=== PATIENT | female | born 1960 | race Caucasian/White ===

== ENCOUNTER 2018-09-26 09:36 | Outpatient (CLI) | payer OTHER ==
[2018-09-26 09:58] LABS: BASOPHILS % (AUTO) 0.7 %; EOSINOPHILS # (AUTO) 0.1 10^3/uL (0.0-0.7); HGB - HEMOGLOBIN 14.1 g/dL (12.0-16.0); LYMPHOCYTES # (AUTO) 1.2 10^3/uL (1.5-3.5); LYMPHOCYTES % (AUTO) 26.3 %; MEAN CORPUSCULAR HEMOGLOBIN 32.7 pg (27.0-31.0); MEAN CORPUSCULAR HGB CONC 34.7 g/dL (32.0-36.0); MEAN CORPUSCULAR VOLUME 94.3 fL (81.0-99.0); MEAN PLATELET VOLUME 6.7 fL (7.9-10.8); MONOCYTES # (AUTO) 0.4 10^3/uL (0.0-1.0); MONOCYTES % (AUTO) 8.1 %; NEUTROPHILS # (AUTO) 2.8 10^3/uL (1.5-6.6); NEUTROPHILS % (AUTO) 62.9 %; PLT - PLATELET COUNT 232 10^3/uL (130-450); RED BLOOD COUNT 4.32 10^6/uL (4.20-5.40); WHITE BLOOD COUNT 4.5 x10^3/uL (4.8-10.8)
[2018-09-26 10:15] LABS: ALBUMIN 4.3 g/dL (3.2-5.5); ALBUMIN/GLOBULIN RATIO 1.4 (1.0-2.2); ALKALINE PHOSPHATASE 54 IU/L (42-121); ALT ALANINE AMINOTRANSFERASE 20 IU/L (10-60); AST ASPARTATE AMINOTRANSFERASE 19 IU/L (10-42); BILIRUBIN,TOTAL 0.7 mg/dL (0.2-1.0); BUN - BLOOD UREA NITROGEN 13 mg/dL (6-20); CALCIUM 8.9 mg/dL (8.5-10.3); CARBON DIOXIDE - CO2 24 mmol/L (21-32); CHLORIDE 106 mmol/L (101-111); CHOL/HDL RATIO 2.7 (<4.4); CHOLESTEROL 147 mg/dL; CREATININE 0.7 mg/dL (0.4-1.0); GFR - MDRD 86 (>89); GLUCOSE 107 mg/dL (70-100); HDL CHOLESTEROL 55 mg/dL; LDL CHOLESTEROL,CALCULATED 78 mg/dL; LDL/HDL RATIO 1.4 (<4.4); SODIUM 138 mmol/L (135-145); TOTAL PROTEIN 7.3 g/dL (6.7-8.2); VLDL CHOLESTEROL 14 mg/dL
[2018-09-27 13:54] LABS: HEPATITIS C ANTIBODY NON-REACTIVE (NON-REACTIVE)
== END 2018-09-26 09:37 | disposition home or self-care (01) ==
LOC: LAB 09:36
PROVIDERS: ATTEND Physician Assistant Medical
DX: Z00.00 Encounter for general adult medical examination without abnormal findings (principal); Z11.59 Encounter for screening for other viral diseases
CPT/HCPCS: 36415; 80053; 80061; 83721; 84443; 85025; 86803

== ENCOUNTER 2018-10-08 13:48 | Outpatient (CLI) | payer OTHER ==
[2018-10-08] MEDS ORDERED: IOVERSOL 320 50 ML VIAL ONE (14:09)
[2018-10-08] MEDS ORDERED: IOVERSOL 320 100 ML VIAL IVP ONE (14:09)
[2018-10-08] MEDS: IOVERSOL 320 50 ML VIAL PO ONE (14:13)
[2018-10-08] MEDS: IOVERSOL 320 100 ML VIAL IVP ONE (15:36)
--- NOTE | 2018-10-09 15:21 | CT Report ---
Reason: ABDOMINAL PAIN,RUQ,EMESIS Procedure Date: 10/08/2018 Accession Number: [id number] / [id number] Procedure: CT - Abdomen/Pelvis W/ CPT Code: FULL RESULT: EXAM: CT ABDOMEN AND PELVIS EXAM DATE: 10/08/2018 03:43 PM. CLINICAL HISTORY: ABDOMINAL PAIN,RUQ,EMESIS. COMPARISONS: ABD/PEL 06/08/2007 3:27 PM. TECHNIQUE: Routine helical CT imaging was performed through the abdomen and pelvis. IV contrast: OPTIRAY 320 100mL. Enteric contrast: Yes. Reconstructions: Coronal and sagittal. In accordance with CT protocol optimization, one or more of the following dose reduction techniques were utilized for this exam: automated exposure control, adjustment of mA and/or KV based on patient size, or use of iterative reconstructive technique. FINDINGS: Lung Bases: Dependent subsegmental atelectasis in the right lung base. Scattered centrilobular emphysema. Liver: Normal. No masses. Gallbladder/Bile Ducts: The gallbladder is surgically absent. Trace pneumobilia in the left hepatic lobe, which may represent postoperative change or possibly sphincter of Oddi dysfunction. There is a 6 mm density in the region of the common bile duct, which represent an intraluminal stone or adjacent extraluminal calcification. The cystic duct remnant is dilated. Spleen: Normal. Pancreas: Normal. Adrenal Glands: Normal. Kidneys: Normal. No masses or hydronephrosis. Peritoneal Cavity/Bowel: Enteric contrast is seen to the level of the cecum. Nonobstructive bowel gas pattern. No free air or free fluid. The appendix is well visualized and normal. Pelvic Organs: Normal. The bladder and visualized pelvic organs are within normal limits. Vasculature: No aneurysms or other significant abnormality. Bones: No significant abnormality. Other: None. IMPRESSION: Status post cholecystectomy. The cystic duct remnant is dilated. There is a 6 mm density in the region of the common bile duct, which could represent choledocholithiasis, although there is no associated bile duct dilation. Other considerations include volume averaging from an adjacent extraluminal calcification. Consider further evaluation with MRCP or ERCP as clinically indicated. Nonspecific pneumobilia in the left hepatic lobe, which may represent postoperative change. RADIA
--- NOTE | 2018-10-10 08:25 | Mammography Report ---
Reason: SCREENING MAMMO Procedure Date: 10/08/2018 Accession Number: [id number] / [id number] Procedure: [facility] - Screening Mammo Dig Bilat CPT Code: FULL RESULT: EXAM: Screening Mammo Dig Bilat DATE: 10/08/2018 2:53 PM CLINICAL HISTORY: Screening encounter. Family history of breast cancer in the mother at age 58, an aunt at age 68, and the grandmother at age 60. TECHNIQUE: Bilateral CC and MLO views were obtained. COMPARISON: 09/27/2016 through 01/31/2011. FINDINGS: The breasts demonstrate scattered fibroglandular densities bilaterally. A right upper breast intramammary lymph nodes is stable, typically benign. No suspicious masses, clustered microcalcifications, or regions of architectural distortion are identified. IMPRESSION: Benign findings RECOMMENDATION: Routine annual screening unless otherwise clinically indicated. BIRADS CATEGORY 2: Benign findings STANDARD QUALIFYING STATEMENTS: 1. This examination was not reviewed with the aid of Computer-Aided Detection (CAD). 2. A negative or benign imaging report should not preclude biopsy if clinically suspicious findings are present. 3. Dense breasts may obscure an underlying neoplasm. 4. This examination was reviewed without the aid of 3D breast imaging (tomosynthesis).
== END 2018-10-08 13:49 | disposition home or self-care (01) ==
LOC: DI 13:48
PROVIDERS: ATTEND Physician Assistant Medical
DX: Z12.31 Encounter for screening mammogram for malignant neoplasm of breast (principal); R10.11 Right upper quadrant pain; R11.10 Vomiting, unspecified; Z80.3 Family history of malignant neoplasm of breast
CPT/HCPCS: 74177; 77067; Q9967

== ENCOUNTER 2018-10-08 13:53 | Outpatient (CLI) | payer OTHER | END 2018-10-08 13:54 | disposition home or self-care (01) | LOC: DI 13:53 | PROVIDERS: ATTEND Physician Assistant Medical | DX: Z53.9 Procedure and treatment not carried out, unspecified reason (principal) ==

== ENCOUNTER 2018-11-24 08:34 | Outpatient (CLI) | payer BC ==
[2018-11-24] MEDS ORDERED: GADOBUTROL 10 MMOL/10 ML VIAL IVP ONE (11:02)
--- NOTE | 2018-11-26 13:43 | MRI Report ---
Reason: ABNORMAL ABDOMINAL IMAGING,ABDOMINAL PAIN Procedure Date: 11/24/2018 Accession Number: [id number] / [id number] Procedure: MRI - Abdomen W/WO CPT Code: FULL RESULT: EXAM: MR ABDOMEN WITH AND WITHOUT CONTRAST (MR PANCREAS AND MRCP) EXAM DATE: 11/24/2018 10:58 AM. CLINICAL HISTORY: Abnormal abdominal imaging, abdominal pain. COMPARISON: Abdomen/pelvis w/contrast 10/08/2018 3:24 PM. TECHNIQUE: Multiplanar breath-hold T1, T2, and DWI sequences obtained through the pancreas and abdomen on an MR scanner. Dedicated 2D and 3D MRCP sequences obtained through the biliary and pancreatic ducts. Images obtained before and after administration of 10 mL Gadavist intravenous contrast. Multiphase postcontrast sequences obtained through the pancreas. FINDINGS: This study is limited by image degradation from motion artifact. Lung Bases: Unremarkable. Liver: No fatty infiltration and no suspicious mass is seen. Gallbladder: Surgically absent. Bile Ducts: Limited visualization with the extrahepatic common bile duct measuring up to 5 mm and demonstrating a smooth tapering towards the region of the CBD. The hepatic ducts and proximal common bile duct are essentially not visualized. Pancreas: The pancreas appears normal with no mass. The pancreatic duct measures 1.5 mm in diameter and appears normal with no stone or stricture. Spleen: The spleen appears normal. Kidneys: The kidneys appear normal with no mass or hydronephrosis. Adrenals: The adrenals appear normal. Bowel: The visualized segments of the small bowel and colon appear normal with no inflammation or obstruction. Retroperitoneum: The retroperitoneal structures appear normal with no mass or lymphadenopathy. Other: Small amount of periumbilical hernia/diastasis. IMPRESSION: Limited MRI examination with limited evaluation of biliary ductal system. No definite choledocholithiasis is detected. RADIA ADDENDUM: 11/29/18 13:07 The patient is status post choledochojejunostomy. In this setting, the relatively well visualized 5 mm distal common bile duct with its distal smooth tapering demonstrates luminal signal dropout approximately 1.5 cm from the jejunal wall at the presumed anastomotic site. No choledocholithiasis is seen. This appearance can be seen in the setting of perianastomotic ischemic stricture.
== END 2018-11-24 08:35 | disposition home or self-care (01) ==
LOC: DI 08:34
PROVIDERS: ATTEND Internal Medicine Gastroenterology
DX: R93.5 Abnormal findings on diagnostic imaging of other abdominal regions, including retroperitoneum (principal); R10.9 Unspecified abdominal pain
CPT/HCPCS: 74183

== ENCOUNTER 2020-06-26 08:13 | Outpatient (CLI) | payer BC ==
--- NOTE | 2020-06-29 11:48 | Mammography Report ---
BILATERAL DIGITAL SCREENING MAMMOGRAM 3D/2D: 06/26/2020 CLINICAL: Routine screening. Comparison is made to exams dated: 10/08/2018 mammogram, 09/27/2016 mammogram, and 03/18/2014 mammogr am - [facility]. There are scattered fibroglandular elements in both breasts. No significant masses, calcifications, or other findings are seen in either breast. There has been no significant interval change. IMPRESSION: NEGATIVE There is no mammographic evidence of malignancy. A 1 year screening mammogram is recommended. This exam was interpreted at Station ID: [id number]. NOTE: For mammograms, a report in lay terms will be sent to the patient. Approximately 15% of breast malignancies will not be visualized mammographically. In the management of a palpable breast mass, a negative mammogram must not discourage biopsy of a clinically suspicious lesion. Electronically Signed By: Camille peña/[email or web address]:06/26/2020 11:25:25 ACR BI-RADS Category 1: Negative 3341F PARENCHYMAL PATTERN: (A) - The breast(s) demonstrate(s) scattered fibroglandular densities. BI-RADS CATEGORY: (1) - 1 RECOMMENDATION: (ANNUAL) - Recommend routine annual screening mammography. [id number] 1 year screening LATERALITY: (B)
== END 2020-06-26 08:14 | disposition home or self-care (01) ==
LOC: DI 08:13
DX: Z12.31 Encounter for screening mammogram for malignant neoplasm of breast (principal)
CPT/HCPCS: 77063; 77067

== ENCOUNTER 2021-06-08 15:50 | Outpatient (CLI) | payer BC ==
[2021-06-08 16:07] LABS: BASOPHILS % (AUTO) 0.8 %; EOSINOPHILS # (AUTO) 0.1 10^3/uL (0.0-0.7); EOSINOPHILS % (AUTO) 2.1 %; HCT - HEMATOCRIT 41.4 % (37.0-47.0); HGB - HEMOGLOBIN 13.8 g/dL (12.0-16.0); LYMPHOCYTES # (AUTO) 1.8 10^3/uL (1.5-3.5); LYMPHOCYTES % (AUTO) 33.7 %; MEAN CORPUSCULAR HEMOGLOBIN 32.3 pg (27.0-31.0); MEAN CORPUSCULAR HGB CONC 33.3 g/dL (32.0-36.0); MEAN PLATELET VOLUME 8.9 fL (7.9-10.8); MONOCYTES # (AUTO) 0.4 10^3/uL (0.0-1.0); MONOCYTES % (AUTO) 7.1 %; NEUTROPHILS # (AUTO) 2.9 10^3/uL (1.5-6.6); NEUTROPHILS % (AUTO) 56.1 %; PLT - PLATELET COUNT 239 10^3/uL (130-450); RED BLOOD COUNT 4.27 10^6/uL (4.20-5.40); RED CELL DISTRIBUTION WIDTH 12.6 % (12.0-15.0); WHITE BLOOD COUNT 5.2 x10^3/uL (4.8-10.8)
[2021-06-08 16:10] LABS: BILIRUBIN,URINE NEGATIVE (NEGATIVE); GLUCOSE, URINE (UA) NEGATIVE (NEGATIVE); KETONES,URINE (UA) NEGATIVE (NEGATIVE); LEUKOCYTE ESTERASE, URINE NEGATIVE (NEGATIVE); NITRITE,URINE NEGATIVE (NEGATIVE); OCCULT BLOOD,URINE NEGATIVE (NEGATIVE); PH,URINE 5.5 PH (5.0-7.5); PROTEIN,URINE NEGATIVE (NEGATIVE); UROBILINOGEN,URINE 0.2 (NORMAL) E.U./dL (NORMAL)
[2021-06-08 16:15] LABS: ALBUMIN 4.5 g/dL (3.2-5.5); ALBUMIN/GLOBULIN RATIO 1.5 (1.0-2.2); CALCIUM 9.3 mg/dL (8.5-10.3); CREATININE 0.8 mg/dL (0.4-1.0); TOTAL PROTEIN 7.6 g/dL (6.7-8.2)
[2021-06-08 16:18] LABS: BACTERIA,URINE Rare /HPF (None Seen); CLARITY,URINE CLEAR (CLEAR); MUCUS,URINE Few Strands; RBC,URINE 0-5 /HPF (0-5); SQUAMOUS EPITHELIAL CELL,UR RARE Squamous (<= Few); WBC,URINE 0-3 /HPF (0-5)
[2021-06-09 04:41] LABS: ESTRADIOL <15 pg/mL
[2021-06-09 05:02] LABS: PROGESTERONE <0.5 ng/mL
== END 2021-06-08 15:51 | disposition home or self-care (01) ==
LOC: LAB 15:50
PROVIDERS: ATTEND Naturopath
DX: R68.82 Decreased libido (principal); L29.2 Pruritus vulvae
CPT/HCPCS: 36415; 80053; 81001; 82670; 84144; 84403; 85025; 87086

== ENCOUNTER 2023-02-16 08:12 | Outpatient (CLI) | payer BC ==
--- NOTE | 2023-02-17 09:51 | Mammography Report ---
BILATERAL DIGITAL SCREENING MAMMOGRAM 3D/2D: 02/16/2023 CLINICAL: Routine screening. Comparison is made to exams dated: 06/26/2020 mammogram, 10/08/2018 mammogram, 09/27/2016 mammogram, 03/18/2014 mammogram, and 12/18/2012 mammogram - [facility]. Both breasts are heterogeneously dense, which may obscure small masses (category c / 51-75% glandular tissue). No significant masses, calcifications, or other findings are seen in either breast. There has been no significant interval change. IMPRESSION: NEGATIVE There is no mammographic evidence of malignancy. A 1 year screening mammogram is recommended. Please consider supplemental MRI screening due to elevated lifetime risk. Based on Tyrer-Cuzick model (a risk assessment model), the patient's lifetime risk is 23.8% and her 1 0 year risk is 10.7%. If a patient has an elevated risk, a more comprehensive evaluation should be co nsidered and/or a referral to a genetic counselor. The [place] [employer], [place] [employer], and NCCN Guidelines advise the consideration of Breast MRI as an adjunct to screening mammo graphy in patients whose "Lifetime risk to develop breast cancer" is 20% or higher. This exam was interpreted at Station ID: [id number]. NOTE: For mammograms, a report in lay terms will be sent to the patient. Approximately 15% of breast malignancies will not be visualized mammographically. In the management of a palpable breast mass, a negative mammogram must not discourage biopsy of a clinically suspicious lesion. Electronically Signed By: Bry Cardoso M.D. lc/:02/16/2023 09:14:21 letter sent: No_Letter ACR BI-RADS Category 1: Negative 3341F PARENCHYMAL PATTERN: (D) - The breast(s) demonstrate(s) heterogeneously dense fibroglandular parcheikh mcrae. BI-RADS CATEGORY: (1) - 1 Mammogram [id number] 1 year screening LATERALITY: (B)
== END 2023-02-16 08:13 | disposition home or self-care (01) ==
LOC: DI 08:12
PROVIDERS: ATTEND Naturopath
DX: Z12.31 Encounter for screening mammogram for malignant neoplasm of breast (principal)